=== PATIENT | male | born 1995 | race African-American/Black ===

== ENCOUNTER 2020-11-06 10:13 | Emergency (ER) | payer OTHER, SELFPAY ==
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
[2020-11-06 10:28] VITALS: BP 111/66; PULSE 67; RESP 16; TEMP 36.5; O2SAT 100
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
== END 2020-11-06 12:25 | disposition home or self-care (01) ==
PROVIDERS: Emergency Provider Emergency Medicine
DX: S40.012A Contusion of left shoulder, initial encounter (principal); V43.52XA Car driver injured in collision with other type car in traffic accident, initial encounter
CPT/HCPCS: 73000; 99283

== ENCOUNTER 2021-11-24 21:13 | Emergency (ER) | payer SELFPAY ==
[2021-11-24 21:33] VITALS: BP 121/78; PULSE 79; RESP 16; TEMP 36.6; O2SAT 99
--- NOTE | 2021-11-24 23:21 | PC.NURSE ---
Pt seen ambulating out of ED with quick, even, steady, unassisted gait. When asked if he was leaving, pt did not respond and continued to parking lot.
--- NOTE | 2021-11-24 23:36 | PC.NURSE ---
Pt still not present in wr. Removed from ED tracker.
== END 2021-11-25 00:03 | disposition left against medical advice (07) ==
LOC: ANHED 23:47
DX: R05.9 Cough, unspecified (principal)
CPT/HCPCS: 99199